=== PATIENT | male | born 1980 | race African-American/Black ===

== ENCOUNTER 2017-11-18 12:43 | Inpatient (IN) | payer OTHER ==
[2017-11-18 12:59] LABS: ADD MAN DIFF? NO
[2017-11-18 13:02] LABS: BASO % 1 % (0-3); EOS % 1 % (0-3); HEMOGLOBIN 12.8 g/dL (13.0-17.5); LYMPH % 13 % (24-48); MEAN CORPUSCULAR HEMOGLOBIN 27 pg (25-35); MEAN CORPUSCULAR HGB CONC 31 g/dL (31-37); MEAN CORPUSCULAR VOLUME 88 fL (79-100); MONO # 0.8 x10^3/uL (0.0-1.1); MONO % 11 % (0-9); NEUT # 5.5 x10^3uL (1.8-7.7); NEUT % 74 % (31-73); PLATELET COUNT 283 x10^3/uL (140-400); RED BLOOD COUNT 4.68 x10^6/uL (4.30-5.70); RED CELL DISTRIBUTION WIDTH 14.7 % (11.5-14.5); WHITE BLOOD COUNT 7.4 x10^3/uL (4.0-11.0)
[2017-11-18] MEDS: IPRATRPIUM/ALBUTEROL 0.5/2.5MG 3 ML NEBU. NEB ×3 (13:18→19:09)
[2017-11-18 13:20] LABS: ANION GAP 7 (6-14); BLOOD UREA NITROGEN 21 mg/dL (8-26); BUN/CREATININE RATIO 21 (6-20); CALCIUM 9.1 mg/dL (8.5-10.1); CARBON DIOXIDE 32 mmol/L (21-32); CHLORIDE 104 mmol/L (98-107); GFR 84.5; GLUCOSE 135 mg/dL (70-99); POTASSIUM 4.7 mmol/L (3.5-5.1); SODIUM 143 mmol/L (136-145)
[2017-11-18 13:26] LABS: ALBUMIN 3.8 g/dL (3.4-5.0); ALK PHOS 72 U/L (46-116); ALT (SGPT) 79 U/L (16-63); AST (SGOT) 48 U/L (15-37); TOTAL BILIRUBIN 0.7 mg/dL (0.2-1.0); TOTAL PROTEIN 7.8 g/dL (6.4-8.2)
[2017-11-18 13:32] LABS: TROPONINI 0.064 ng/mL (0.000-0.055)
[2017-11-18 13:36] LABS: CKMB INDEX 1.5 % (0-4); CKMB MASS 6.8 ng/mL (0.0-3.6); CREATINE KINASE 455 U/L (39-308)
[2017-11-18 13:36] LABS: NT-PRO BNP 2954 pg/mL (0-124)
[2017-11-18 13:52] LABS: BASE EXCESS ABG 3 mmol/L (-3-3); HCO3 ABG 30 mmol/L (21-28); PO2 ABG 92 mmHg (85-108); SAT O2 ABG 96 % (92-99)
[2017-11-18 13:55] LABS: PCO2 ABG 58 mmHg (35-46); PH ABG 7.33 (7.35-7.45)
[2017-11-18] MEDS: FUROSEMIDE 40 MG/4 ML VIAL. IVP (13:59)
[2017-11-18] MEDS: IV NORMAL SALINE 1000ML BAG 1,000 ML IV (14:16)
[2017-11-18] MEDS ORDERED: ONDANSETRON PF 4 MG/2 ML VIAL. IV (14:30)
[2017-11-18] MEDS ORDERED: ACETAMINOPHEN 325 MG TABLET. PO (14:30)
[2017-11-18 20:29] LABS: TROPONINI 0.079 ng/mL (0.000-0.055)
[2017-11-19 02:06] LABS: ADD MAN DIFF? NO
[2017-11-19 02:09] LABS: BASO % 1 % (0-3); EOS # 0.1 x10^3/uL (0.0-0.7); EOS % 1 % (0-3); HEMATOCRIT 38.3 % (39.0-53.0); HEMOGLOBIN 11.9 g/dL (13.0-17.5); LYMPH # 0.9 x10^3/uL (1.0-4.8); LYMPH % 15 % (24-48); MEAN CORPUSCULAR HEMOGLOBIN 27 pg (25-35); MEAN CORPUSCULAR HGB CONC 31 g/dL (31-37); MEAN CORPUSCULAR VOLUME 88 fL (79-100); MONO # 0.7 x10^3/uL (0.0-1.1); MONO % 11 % (0-9); NEUT # 4.7 x10^3uL (1.8-7.7); NEUT % 72 % (31-73); PLATELET COUNT 261 x10^3/uL (140-400); RED BLOOD COUNT 4.35 x10^6/uL (4.30-5.70); RED CELL DISTRIBUTION WIDTH 14.7 % (11.5-14.5); WHITE BLOOD COUNT 6.5 x10^3/uL (4.0-11.0)
[2017-11-19 03:01] LABS: ANION GAP 6 (6-14); BLOOD UREA NITROGEN 21 mg/dL (8-26); CARBON DIOXIDE 34 mmol/L (21-32); CHLORIDE 104 mmol/L (98-107); CHOLESTEROL 118 mg/dL (0-200); CREATININE 1.1 mg/dL (0.7-1.3); GFR 91.6; GLUCOSE 104 mg/dL (70-99); HDLC 34 mg/dL (40-60); LDLC 68 mg/dL (0-100); NON-HDL CHOLESTEROL 84 mg/dL (0-129); POTASSIUM 4.4 mmol/L (3.5-5.1); SODIUM 144 mmol/L (136-145); TRIGLYCERIDES 79 mg/dL (0-150); VLDLC 16 mg/dL (0-40)
[2017-11-19 03:05] LABS: TROPONINI 0.099 ng/mL (0.000-0.055)
[2017-11-19 03:40] LABS: CHOLESTEROL/HDL RATIO 3.5
[2017-11-19] MEDS: IPRATRPIUM/ALBUTEROL 0.5/2.5MG 3 ML NEBU. NEB ×5 (07:09→19:33)
[2017-11-19] MEDS: FUROSEMIDE 40 MG/4 ML VIAL. IVP ×2 (08:38→14:32)
[2017-11-19] MEDS: POTASSIUM CHLORIDE 20 MEQ TABLET.ER. PO (08:39)
[2017-11-19] MEDS: IV NORMAL SALINE 1000ML BAG 1,000 ML IV (08:42)
[2017-11-19] MEDS ORDERED: FUROSEMIDE 40 MG/4 ML VIAL. IVP (09:00)
[2017-11-19] MEDS: ASPIRIN ENTERIC COATED 81 MG TABLET.DR. PO (15:00)
[2017-11-19] MEDS: ISOSORBIDE MONONITRATE ER 30 MG TAB.ER.24H PO (17:11)
[2017-11-19] MEDS: METOPROLOL TART IMMED RELEASE 25 MG TABLET. PO ×2 (17:12→23:00)
[2017-11-20] MEDS: SIMETHICONE 80 MG TAB.CHEW PO ×2 (00:31→11:13)
[2017-11-20 07:04] LABS: ADD MAN DIFF? NO
[2017-11-20 07:24] LABS: BASO % 1 % (0-3); EOS # 0.2 x10^3/uL (0.0-0.7); EOS % 3 % (0-3); HEMATOCRIT 37.3 % (39.0-53.0); HEMOGLOBIN 11.6 g/dL (13.0-17.5); LYMPH # 1.1 x10^3/uL (1.0-4.8); LYMPH % 19 % (24-48); MEAN CORPUSCULAR HEMOGLOBIN 27 pg (25-35); MEAN CORPUSCULAR HGB CONC 31 g/dL (31-37); MEAN CORPUSCULAR VOLUME 88 fL (79-100); MONO # 0.8 x10^3/uL (0.0-1.1); MONO % 13 % (0-9); NEUT % 65 % (31-73); PLATELET COUNT 252 x10^3/uL (140-400); RED BLOOD COUNT 4.23 x10^6/uL (4.30-5.70); RED CELL DISTRIBUTION WIDTH 14.7 % (11.5-14.5); WHITE BLOOD COUNT 6.2 x10^3/uL (4.0-11.0)
[2017-11-20 07:34] LABS: ANION GAP 5 (6-14); BLOOD UREA NITROGEN 19 mg/dL (8-26); CALCIUM 9.1 mg/dL (8.5-10.1); CARBON DIOXIDE 33 mmol/L (21-32); CHLORIDE 104 mmol/L (98-107); CREATININE 0.9 mg/dL (0.7-1.3); GFR 115.5; GLUCOSE 94 mg/dL (70-99); POTASSIUM 4.7 mmol/L (3.5-5.1); SODIUM 142 mmol/L (136-145)
[2017-11-20] MEDS: IPRATRPIUM/ALBUTEROL 0.5/2.5MG 3 ML NEBU. NEB ×4 (08:00→20:06)
[2017-11-20] MEDS: ISOSORBIDE MONONITRATE ER 30 MG TAB.ER.24H PO (11:13)
[2017-11-20] MEDS: POTASSIUM CHLORIDE 20 MEQ TABLET.ER. PO (11:13)
[2017-11-20] MEDS: ASPIRIN ENTERIC COATED 81 MG TABLET.DR. PO (11:13)
[2017-11-20] MEDS: METOPROLOL TART IMMED RELEASE 25 MG TABLET. PO ×2 (11:14→20:43)
[2017-11-20] MEDS: FUROSEMIDE 40 MG/4 ML VIAL. IVP ×2 (11:14→14:36)
[2017-11-20] MEDS: LISINOPRIL 10 MG TABLET PO (14:35)
[2017-11-21] MEDS: SIMETHICONE 80 MG TAB.CHEW PO (01:52)
[2017-11-21 05:46] LABS: ADD MAN DIFF? NO
[2017-11-21 06:21] LABS: BASO % 1 % (0-3); EOS # 0.2 x10^3/uL (0.0-0.7); EOS % 3 % (0-3); HEMATOCRIT 36.6 % (39.0-53.0); HEMOGLOBIN 11.6 g/dL (13.0-17.5); LYMPH # 1.2 x10^3/uL (1.0-4.8); LYMPH % 19 % (24-48); MEAN CORPUSCULAR HEMOGLOBIN 28 pg (25-35); MEAN CORPUSCULAR HGB CONC 32 g/dL (31-37); MEAN CORPUSCULAR VOLUME 88 fL (79-100); MONO # 0.9 x10^3/uL (0.0-1.1); MONO % 14 % (0-9); NEUT # 3.9 x10^3uL (1.8-7.7); NEUT % 63 % (31-73); PLATELET COUNT 239 x10^3/uL (140-400); RED BLOOD COUNT 4.17 x10^6/uL (4.30-5.70); RED CELL DISTRIBUTION WIDTH 14.7 % (11.5-14.5); WHITE BLOOD COUNT 6.3 x10^3/uL (4.0-11.0)
[2017-11-21 06:50] LABS: ANION GAP 7 (6-14); BLOOD UREA NITROGEN 23 mg/dL (8-26); CALCIUM 8.9 mg/dL (8.5-10.1); CARBON DIOXIDE 34 mmol/L (21-32); CHLORIDE 102 mmol/L (98-107); CREATININE 1.1 mg/dL (0.7-1.3); GFR 91.6; GLUCOSE 96 mg/dL (70-99); POTASSIUM 4.7 mmol/L (3.5-5.1); SODIUM 143 mmol/L (136-145)
[2017-11-21] MEDS: IPRATRPIUM/ALBUTEROL 0.5/2.5MG 3 ML NEBU. NEB ×4 (07:52→19:32)
[2017-11-21] MEDS: POTASSIUM CHLORIDE 20 MEQ TABLET.ER. PO (08:47)
[2017-11-21] MEDS: ASPIRIN ENTERIC COATED 81 MG TABLET.DR. PO (08:47)
[2017-11-21] MEDS: LISINOPRIL 10 MG TABLET PO (08:47)
[2017-11-21] MEDS: ISOSORBIDE MONONITRATE ER 30 MG TAB.ER.24H PO (08:48)
[2017-11-21] MEDS: METOPROLOL TART IMMED RELEASE 25 MG TABLET. PO ×2 (08:48→20:26)
[2017-11-21] MEDS: FUROSEMIDE 40 MG/4 ML VIAL. IVP ×2 (08:49→14:22)
[2017-11-22] MEDS: oxyCODONE/APAP 7.5/325 1 TAB TABLET PO (03:59)
[2017-11-22] MEDS: ALPRAZolam 1 MG TABLET PO (03:59)
[2017-11-22 05:31] LABS: ADD MAN DIFF? NO
[2017-11-22 05:40] LABS: BASO % 1 % (0-3); EOS # 0.1 x10^3/uL (0.0-0.7); EOS % 2 % (0-3); HEMATOCRIT 37.8 % (39.0-53.0); HEMOGLOBIN 11.7 g/dL (13.0-17.5); LYMPH # 1.2 x10^3/uL (1.0-4.8); LYMPH % 19 % (24-48); MEAN CORPUSCULAR HEMOGLOBIN 27 pg (25-35); MEAN CORPUSCULAR HGB CONC 31 g/dL (31-37); MEAN CORPUSCULAR VOLUME 88 fL (79-100); MONO # 0.8 x10^3/uL (0.0-1.1); MONO % 14 % (0-9); NEUT # 3.9 x10^3uL (1.8-7.7); NEUT % 64 % (31-73); PLATELET COUNT 229 x10^3/uL (140-400); RED BLOOD COUNT 4.31 x10^6/uL (4.30-5.70); RED CELL DISTRIBUTION WIDTH 14.6 % (11.5-14.5)
[2017-11-22 06:00] LABS: ANION GAP 7 (6-14); BLOOD UREA NITROGEN 25 mg/dL (8-26); CALCIUM 8.8 mg/dL (8.5-10.1); CARBON DIOXIDE 32 mmol/L (21-32); CHLORIDE 101 mmol/L (98-107); CREATININE 1.1 mg/dL (0.7-1.3); GFR 91.6; GLUCOSE 91 mg/dL (70-99); POTASSIUM 4.4 mmol/L (3.5-5.1); SODIUM 140 mmol/L (136-145)
[2017-11-22] MEDS: IPRATRPIUM/ALBUTEROL 0.5/2.5MG 3 ML NEBU. NEB ×4 (07:36→19:15)
[2017-11-22] MEDS: LISINOPRIL 10 MG TABLET PO (08:52)
[2017-11-22] MEDS: ISOSORBIDE MONONITRATE ER 30 MG TAB.ER.24H PO (08:52)
[2017-11-22] MEDS: FUROSEMIDE 40 MG/4 ML VIAL. IVP ×2 (08:52→14:37)
[2017-11-22] MEDS: ASPIRIN ENTERIC COATED 81 MG TABLET.DR. PO (08:53)
[2017-11-22] MEDS: POTASSIUM CHLORIDE 20 MEQ TABLET.ER. PO (08:53)
[2017-11-22] MEDS: METOPROLOL TART IMMED RELEASE 25 MG TABLET. PO ×2 (08:53→20:40)
[2017-11-23] MEDS: oxyCODONE/APAP 7.5/325 1 TAB TABLET PO (00:31)
[2017-11-23 05:58] LABS: ADD MAN DIFF? NO
[2017-11-23 06:12] LABS: BASO % 1 % (0-3); EOS # 0.2 x10^3/uL (0.0-0.7); EOS % 3 % (0-3); HEMATOCRIT 37.9 % (39.0-53.0); HEMOGLOBIN 11.8 g/dL (13.0-17.5); LYMPH # 1.4 x10^3/uL (1.0-4.8); LYMPH % 22 % (24-48); MEAN CORPUSCULAR HEMOGLOBIN 27 pg (25-35); MEAN CORPUSCULAR HGB CONC 31 g/dL (31-37); MEAN CORPUSCULAR VOLUME 88 fL (79-100); MONO # 0.9 x10^3/uL (0.0-1.1); MONO % 13 % (0-9); NEUT # 3.9 x10^3uL (1.8-7.7); NEUT % 61 % (31-73); PLATELET COUNT 242 x10^3/uL (140-400); RED BLOOD COUNT 4.29 x10^6/uL (4.30-5.70); RED CELL DISTRIBUTION WIDTH 14.4 % (11.5-14.5); WHITE BLOOD COUNT 6.5 x10^3/uL (4.0-11.0)
[2017-11-23 06:44] LABS: ANION GAP 4 (6-14); BLOOD UREA NITROGEN 25 mg/dL (8-26); CARBON DIOXIDE 35 mmol/L (21-32); CHLORIDE 102 mmol/L (98-107); CREATININE 1.1 mg/dL (0.7-1.3); GFR 91.6; GLUCOSE 83 mg/dL (70-99); POTASSIUM 4.7 mmol/L (3.5-5.1); SODIUM 141 mmol/L (136-145)
[2017-11-23] MEDS: IPRATRPIUM/ALBUTEROL 0.5/2.5MG 3 ML NEBU. NEB ×4 (08:49→19:42)
[2017-11-23] MEDS: POTASSIUM CHLORIDE 20 MEQ TABLET.ER. PO (10:43)
[2017-11-23] MEDS: METOPROLOL TART IMMED RELEASE 25 MG TABLET. PO ×2 (10:43→22:05)
[2017-11-23] MEDS: LISINOPRIL 10 MG TABLET PO (10:44)
[2017-11-23] MEDS: ASPIRIN ENTERIC COATED 81 MG TABLET.DR. PO (10:44)
[2017-11-23] MEDS: FUROSEMIDE 40 MG/4 ML VIAL. IVP ×2 (10:45→14:47)
[2017-11-23] MEDS ORDERED: ONDANSETRON PF 4 MG/2 ML VIAL. IV (11:45)
[2017-11-23] MEDS ORDERED: ACETAMINOPHEN 500 MG TABLET PO (11:45)
[2017-11-23] MEDS: ISOSORBIDE MONONITRATE ER 30 MG TAB.ER.24H PO (12:39)
[2017-11-24] MEDS: ALPRAZolam 1 MG TABLET PO (03:24)
[2017-11-24 06:03] LABS: ADD MAN DIFF? NO
[2017-11-24 06:17] LABS: BASO % 1 % (0-3); EOS # 0.1 x10^3/uL (0.0-0.7); EOS % 2 % (0-3); HEMATOCRIT 36.5 % (39.0-53.0); HEMOGLOBIN 11.3 g/dL (13.0-17.5); LYMPH # 0.8 x10^3/uL (1.0-4.8); LYMPH % 15 % (24-48); MEAN CORPUSCULAR HEMOGLOBIN 27 pg (25-35); MEAN CORPUSCULAR HGB CONC 31 g/dL (31-37); MEAN CORPUSCULAR VOLUME 87 fL (79-100); MONO # 0.6 x10^3/uL (0.0-1.1); MONO % 12 % (0-9); NEUT # 3.7 x10^3uL (1.8-7.7); NEUT % 70 % (31-73); PLATELET COUNT 214 x10^3/uL (140-400); RED BLOOD COUNT 4.18 x10^6/uL (4.30-5.70); RED CELL DISTRIBUTION WIDTH 14.4 % (11.5-14.5); WHITE BLOOD COUNT 5.2 x10^3/uL (4.0-11.0)
[2017-11-24 06:38] LABS: ANION GAP 5 (6-14); BLOOD UREA NITROGEN 24 mg/dL (8-26); CALCIUM 9.3 mg/dL (8.5-10.1); CARBON DIOXIDE 36 mmol/L (21-32); CHLORIDE 103 mmol/L (98-107); GFR 102.3; GLUCOSE 99 mg/dL (70-99); POTASSIUM 4.7 mmol/L (3.5-5.1); SODIUM 144 mmol/L (136-145)
[2017-11-24] MEDS: IPRATRPIUM/ALBUTEROL 0.5/2.5MG 3 ML NEBU. NEB ×2 (08:10→11:52)
[2017-11-24] MEDS: POTASSIUM CHLORIDE 20 MEQ TABLET.ER. PO (08:58)
[2017-11-24] MEDS: ASPIRIN ENTERIC COATED 81 MG TABLET.DR. PO (08:58)
[2017-11-24] MEDS: METOPROLOL TART IMMED RELEASE 25 MG TABLET. PO (08:59)
[2017-11-24] MEDS: ISOSORBIDE MONONITRATE ER 30 MG TAB.ER.24H PO (08:59)
[2017-11-24] MEDS: LISINOPRIL 10 MG TABLET PO (08:59)
[2017-11-24] MEDS: FUROSEMIDE 40 MG/4 ML VIAL. IVP ×2 (09:00→13:52)
[2017-11-24 11:59] LABS: MAGNESIUM 2.3 mg/dL (1.8-2.4)
== END 2017-11-24 14:35 | disposition home health service (06) | DRG 291 ==
LOC: ER 12:43 → ED HOLD 13:46 → 2 NORTH 17:07
PROC: 5A09357 Assistance with Respiratory Ventilation, Less than 24 Consecutive Hours, Continuous Positive Airway Pressure (ICD-10-PCS; principal; 2017-11-18)
PROC: 5A09357 Assistance with Respiratory Ventilation, Less than 24 Consecutive Hours, Continuous Positive Airway Pressure (ICD-10-PCS; 2017-11-19)
PROC: 5A09357 Assistance with Respiratory Ventilation, Less than 24 Consecutive Hours, Continuous Positive Airway Pressure (ICD-10-PCS; 2017-11-20)
PROC: 5A09357 Assistance with Respiratory Ventilation, Less than 24 Consecutive Hours, Continuous Positive Airway Pressure (ICD-10-PCS; 2017-11-21)
PROC: 5A09357 Assistance with Respiratory Ventilation, Less than 24 Consecutive Hours, Continuous Positive Airway Pressure (ICD-10-PCS; 2017-11-22)
PROC: 5A09357 Assistance with Respiratory Ventilation, Less than 24 Consecutive Hours, Continuous Positive Airway Pressure (ICD-10-PCS; 2017-11-23)
PROC: 5A09357 Assistance with Respiratory Ventilation, Less than 24 Consecutive Hours, Continuous Positive Airway Pressure (ICD-10-PCS; 2017-11-24)
DX: I11.0 Hypertensive heart disease with heart failure (principal); J96.21 Acute and chronic respiratory failure with hypoxia; E66.01 Morbid (severe) obesity due to excess calories; Z68.45 Body mass index [BMI] 70 or greater, adult; J45.901 Unspecified asthma with (acute) exacerbation; I42.0 Dilated cardiomyopathy; I50.43 Acute on chronic combined systolic (congestive) and diastolic (congestive) heart failure; J44.9 Chronic obstructive pulmonary disease, unspecified; E78.5 Hyperlipidemia, unspecified; F32.9 Major depressive disorder, single episode, unspecified; G47.33 Obstructive sleep apnea (adult) (pediatric); Z79.899 Other long term (current) drug therapy; Z82.49 Family history of ischemic heart disease and other diseases of the circulatory system; Z87.891 Personal history of nicotine dependence
CPT/HCPCS: 36415; 36600; 71045; 76705; 80048; 80053; 80061; 82553; 82805; 83735; 83880; 84484; 85025; 93005; 93306; 93970; 94640; 94660; 94760; 97116-GP; 97161-GP; 97166-GO; J1940; J7620